=== PATIENT | female | born 1965 | race African-American/Black ===

== ENCOUNTER 2019-07-15 16:47 | Emergency (ER) | payer OTHER ==
[~2019-07-15] VITALS: Ht 154.9 cm; Wt 72.6 kg
[2019-07-15 17:05] VITALS: BP 136/78
[2019-07-15] MEDS ORDERED: SYMBICORT160 MCG/4. INH (17:20)
[2019-07-15] MEDS ORDERED: KEPPRA XR750 MG PO (17:20)
[2019-07-15] MEDS ORDERED: JANUVIA25 MG PO (17:20)
[2019-07-15] MEDS ORDERED: DEPAKOTE 250MG250 M1 PO (17:20)
[2019-07-15] MEDS ORDERED: DYAZIDE 37.5-21 EACH PO (17:22)
== END 2019-07-15 17:32 | disposition home or self-care (01) ==
LOC: M.ERS 16:47
DX: E11.9 Type 2 diabetes mellitus without complications (principal); I10 Essential (primary) hypertension; J44.9 Chronic obstructive pulmonary disease, unspecified; F03.90 Unspecified dementia, unspecified severity, without behavioral disturbance, psychotic disturbance, mood disturbance, and anxiety; Z76.0 Encounter for issue of repeat prescription